=== PATIENT | female | born 1975 | race Hispanic/Latino ===

== ENCOUNTER 2017-09-11 16:44 | Outpatient (CLI) | payer OTHER ==
--- NOTE | 2017-09-11 20:06 | MRI ---
LUMBAR SPINE MRI NONCONTRAST 09/11/17 INDICATION: Lumbar radiculopathy. FINDINGS: There is grade I/II spondylolisthesis at L5-S1 with associated Modic type II degenerative end plate s ignal alteration of the inferior L5 and superior S1 segments. There is no significant height loss of the lumbar spine. Conus medullaris demonstrates termination at the L1 level. Bilateral L5 pars defect s are suggested, although limited by patient motion. Mild nonspecific marrow edema seen at the retail associate ior elements of L4 and is also seen within the left pedicle of the L5 level. L5-S1: Severe bilateral neural foraminal stenosis results in the above described spondylolisthesis du e to pars defects. There is mild narrowing of the central canal. L4-5: Disc osteophyte complex present without high grade central canal or foraminal stenosis. At the L1-2, L2-3 and L3-4 levels, there are mild disc bulges without significant resultant mass effe ct upon the thecal sac or neural foramina. No significant abnormality of the imaged retroperitoneum. Mild marrow edema seen at the posterior elements of L4 and L5. Otherwise no acute marrow edema eviden t. IMPRESSION: Prominent degenerative changes at L5-S1 due to bilateral pars defects with grade I/II spondylolisthes is producing severe bilateral L5-S1 level neural foraminal stenosis with compromise of the bilateral nerve roots. Associated marrow edema is seen involving posterior elements of the L5 segment as well a s the adjacent L4 segment. POS: ABBIE
== END 2017-09-11 16:45 | disposition home or self-care (01) ==
LOC: MRI 16:44
PROVIDERS: ATTEND Family Medicine
DX: M47.27 Other spondylosis with radiculopathy, lumbosacral region (principal); M43.17 Spondylolisthesis, lumbosacral region; M99.53 Intervertebral disc stenosis of neural canal of lumbar region; R60.9 Edema, unspecified
CPT/HCPCS: 72148

== ENCOUNTER 2018-06-17 13:10 | Outpatient (CLI) | payer OTHER | END 2018-06-17 13:11 | disposition home or self-care (01) | LOC: BICMAMMO 13:10 | PROVIDERS: ATTEND Family Medicine | DX: Z12.31 Encounter for screening mammogram for malignant neoplasm of breast (principal) | CPT/HCPCS: 77063; 77067 ==

== ENCOUNTER 2018-12-16 13:46 | Outpatient (CLI) | payer OTHER ==
--- NOTE | 2018-12-16 14:58 | RAD ---
LUMBAR SPINE 3 VIEWS: Date: 12/16/18 HISTORY: Spondylolisthesis of the lumbar region. COMPARISON: 10/28/17. FINDINGS: Bilateral pars defects with prominent approximately 1.7 cm anterior Grade II listhesis of L5 on S1 wi th sclerosis and hypertrophic osteophytosis. No abnormal translation between flexion and extension. S table from prior study. IMPRESSION: Stable Grade II L5-S1 spondylolisthesis. POS: C
== END 2018-12-16 13:47 | disposition home or self-care (01) ==
LOC: RAD 13:46
PROVIDERS: ATTEND Nurse Practitioner Family
DX: M43.17 Spondylolisthesis, lumbosacral region (principal)
CPT/HCPCS: 72100

== ENCOUNTER 2019-04-16 07:51 | Outpatient (CLI) | payer OTHER ==
--- NOTE | 2019-04-16 08:22 | RAD ---
Flexion-extension lateral projections of the lumbar spine INDICATION: History of lumbar spinal listhesis IMPRESSION: Grade 2 spinal listhesis of L5 on S1 digits no definite abnormal translational motion. Mi ld retrolisthesis of L2 on L3 is not accentuated with extension and slightly reduces with flexion. Mild multilevel disc degenerative disease is stable. Bilateral pars defect at L5 are stable.
--- NOTE | 2019-04-16 11:04 | MRI ---
MRI LUMBAR SPINE WITHOUT CONTRAST: Date: 04/16/19 COMPARISON: None. HISTORY: Lumbar spondylolisthesis, back pain radiating into the left hip and buttocks. TECHNIQUE: Multiplanar, multisequence MR imaging of the lumbar spine without contrast. FINDINGS: On the basis of five lumbar-type vertebral bodies, the conus medullaris terminates at the T12-L1 leve l. T12-L1: Intervertebral disc height and signal intensity within normal limits with no significant eleanor tral canal or neural foraminal stenosis. L1-2: Intervertebral disc height and signal intensity within normal limits with no significant centr al canal or neural foraminal stenosis. L2-3: Intervertebral disc height and signal intensity within normal limits with no significant centr al canal or neural foraminal stenosis. L3-4: There is mild disc space narrowing and disc desiccation. There is mild bilateral facet hypertr ophy. There is no significant central canal or neural foraminal stenosis. L4-5: There is mild disc space narrowing and disc desiccation. There is bilateral facet hypertrophy and mild hypertrophy of the ligamentum flavum with fluid within the left facet joint. There is no sig nificant central canal or neural foraminal stenosis. L5-S1: There is disc space narrowing, degenerative end plate change, and disc desiccation. Bilateral L5 pars defects are present with anterolisthesis of L5 on S1 measuring 1.1 cm. There is severe bilateral neural foraminal stenosis and mild central canal stenosis. The imaged retroperitoneal structures demonstrate no acute findings. There is a retroaortic left renal vein. IMPRESSION: Bilateral L5 pars defects with 1.1 cm of L5 on S1 anterolisthesis and associated severe bilateral noris ral foraminal stenosis. POS: OFF
== END 2019-04-16 07:52 | disposition home or self-care (01) ==
LOC: TBSIIMAG 07:51
PROVIDERS: ATTEND Neurological Surgery
DX: M43.16 Spondylolisthesis, lumbar region (principal); M43.17 Spondylolisthesis, lumbosacral region; M51.36 Other intervertebral disc degeneration, lumbar region
CPT/HCPCS: 72100; 72148

== ENCOUNTER 2019-07-28 09:23 | Outpatient (CLI) | payer OTHER ==
[2019-07-28 14:08] LABS: Hemoglobin 14.1 g/dL (12.0-16.0); Mean Corpuscular HGB CONC 33.3 g/dL (32.0-36.0); Mean Corpuscular Hemoglobin 27.8 pg (27.0-31.0); Mean Corpuscular Volume 83.5 fL (78.0-98.0); Mean Platelet Volume 9.9 fL (7.4-10.4); Platelet Count 237 thou/uL (130-400); RBC Distribution Width 12.4 % (11.5-14.5); Red Blood Cell (RBC) Count 5.08 mill/uL (4.20-5.40); White Blood Cell (WBC) Count 12.1 thou/uL (4.8-10.8)
[2019-07-28 14:16] LABS: INR-International Normal Ratio 0.9; Prothrombin Time 11.9 SEC (12.0-14.7)
== END 2019-07-28 09:24 | disposition home or self-care (01) ==
LOC: LABBT 09:23
PROVIDERS: ATTEND Neurological Surgery
DX: Z01.812 Encounter for preprocedural laboratory examination (principal); M48.061 Spinal stenosis, lumbar region without neurogenic claudication; M43.16 Spondylolisthesis, lumbar region
CPT/HCPCS: 36415; 80053; 80061; 82043; 83036; 85027; 85610; 85730

== ENCOUNTER 2019-07-28 13:00 | Inpatient (IN) | payer OTHER ==
[2019-07-30] MEDS ORDERED: EPINEPHrine 1 MG/ML AMP ONE (06:12)
[2019-07-30] MEDS ORDERED: Bupivacaine PF 0.5% 30 ML VIAL ONE (06:12)
[2019-07-30] MEDS ORDERED: Thrombin 5000 UNITS/5 ML VIAL ONE ×2 (06:12→11:22)
[2019-07-30] MEDS ORDERED: HYDROmorphone 0.5 MG/0.5 ML SYRINGE ONE (06:35)
[2019-07-30] MEDS ORDERED: Fentanyl 100 MCG/2 ML VIAL ONE ×7 (06:35→14:55)
[2019-07-30] MEDS ORDERED: SUGAMMADEX SODIUM 200 MG/2 ML VIAL ONE (07:59)
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
[2019-07-30] MEDS ORDERED: Rocuronium Bromide 50 MG/5 ML VIAL ONE (11:45)
[2019-07-30] MEDS ORDERED: Dexamethasone 20 MG/5 ML VIAL ONE (12:32)
[2019-07-30] MEDS ORDERED: Rocuronium Bromide 10 MG/ML (10ML VIAL) ONE (12:32)
[2019-07-30] MEDS ORDERED: Esmolol 100 MG/10 ML VIAL ONE (12:32)
[2019-07-30] MEDS ORDERED: Ondansetron PF 4 MG/2 ML Vial ONE (12:32)
[2019-07-30] MEDS ORDERED: Lidocaine 1% PF 5 ML VIAL ONE (12:32)
[2019-07-30] MEDS ORDERED: Glycopyrrolate 0.2 MG/ML 5 ML SYRINGE ONE (12:32)
[2019-07-30] MEDS ORDERED: PROPOFOL 200 MG/20 ML VIAL ONE (12:32)
[2019-07-30] MEDS ORDERED: Acetaminophen/Codeine 30-300mg Tablet PO PRN (14:00)
[2019-07-30] MEDS ORDERED: tiZANidine HCl 4 MG TAB PO PRN (14:00)
[2019-07-30] MEDS ORDERED: diphenhydrAMINE 25 MG CAP PO PRN (14:00)
[2019-07-30] MEDS ORDERED: Mag-Al 1200 mg/1200 mg/30 ML UDCUP PO PRN (14:00)
[2019-07-30] MEDS ORDERED: Acetaminophen 325 MG TAB PO PRN (14:00)
[2019-07-30] MEDS ORDERED: Promethazine 25 MG TAB PO PRN (14:00)
[2019-07-30] MEDS ORDERED: Ondansetron PF 4 MG/2 ML Vial IVP PRN (14:00)
[2019-07-30] MEDS ORDERED: traMADol HCl 50 MG TAB PO PRN (14:00)
[2019-07-30] MEDS ORDERED: HYDROmorphone 2 MG/ML VIAL ONE (14:56)
[2019-07-30] MEDS ORDERED: Ondansetron HCl/PF 4 MG/2 ML Vial IVP PRN (15:14)
[2019-07-30] MEDS ORDERED: Promethazine HCl 25 MG/ML VIAL SLOW IVP PRN (15:14)
[2019-07-30] MEDS ORDERED: Promethazine HCl 25 MG/ML VIAL IM PRN (15:14)
[2019-07-30] MEDS ORDERED: Ketorolac Tromethamine 30 MG/ML VIAL ONE (16:13)
[2019-07-30] MEDS: Morphine 2 MG/ML SYRINGE SLOW IVP PRN (16:51)
[2019-07-30] MEDS: CEFAZOLIN 2 GM in Premix Bag 1 BAG IVPB SCH ×2 (16:56→23:09)
[2019-07-30] MEDS: Sodium Chloride 0.9% 1,000 ML IV SCH (16:56)
[2019-07-30] MEDS: metFORMIN 500 MG TAB PO SCH (16:56)
[2019-07-30 17:18] VITALS: BMI 34.9
--- NOTE | 2019-07-30 17:27 | OP ---
DATE OF PROCEDURE: 07/30/2019 CHIEF SOLUTION ARCHITECT: Kem Howard PA-C PREOPERATIVE INDICATION: Treat pain and prevent neurological deterioration. PREOPERATIVE DIAGNOSIS: Grade 2/3 spondylolisthesis at L5-S1 with bilateral L5 radiculopathies from foraminal stenosis and an extreme pelvic tilt. POSTOPERATIVE DIAGNOSIS: Grade 2/3 spondylolisthesis at L5-S1 with bilateral L5 radiculopathies from foraminal stenosis and an extreme pelvic tilt. PROCEDURES PERFORMED: Decompressive laminectomy, medial facetectomy, wide foraminotomy to decompress L5 nerve roots bilaterally, laminectomy at L4-L5, transforaminal lumbar interbody arthrodesis L5-S1 and L4-L5, placement of intervertebral biomechanical device L5-S1 and L4-L5, pedicle screw and yasmin instrumentation L4, L5, S1, posterolateral arthrodesis L4, L5, S1, local morselized autograft, and morselized allograft. PREOPERATIVE MEDICATION: Ancef 2 g IV. DRAIN NUMBER: Zero. DRAIN TYPE: None. DESCRIPTION OF PROCEDURE: The patient was brought to the operating room. General endotracheal anesthesia was induced. The patient was positioned on the Yovanny frame with the appropriate padding for the chest and hips. A lateral fluoro radiograph was used to plan our incision. The lumbar skin was sterilely prepped and draped. We opened with a 10 blade knife. We controlled bleeding with bipolar and monopolar cautery. We used monopolar cautery to dissect through subcutaneous tissues to the thoracodorsal fascia. We incised the fascia in the midline and reflected the paraspinal muscles off the spinous process and lamina of L4, L5, and S1. The posterior elements of L5 were floating and not solid at all. These were removed as a single piece. The L4 spinous process was removed with Adson rongeur within the lamina. We performed a laminectomy at L4. We performed medial facetectomy at L4-L5 to decompress the L5 nerve roots in the lateral recess and L5-S1 to treat the S1 nerve roots. Both L5 nerve roots were severely compressed between the pedicles of L5 and the sacrum. We decompressed as much as we could with complete facetectomies and foraminotomies on both sides. Still, the nerves were draped over the top of the sacrum and under the pedicles, they were compressed. We then turned our attention to pedicle screw placement to distract the lumbosacral interspace. Using bony anatomic landmarks, palpation of the medial portion of the pedicles and a lateral fluoro radiograph as our guide, we chose entry points for pedicle screws at L4, L5, and S1 on the left side. We drilled out our entry points and used a bone awl to create trajectories through the pedicles into the vertebral bodies. We probed our trajectories and found them completely encased in bone. We then used a threaded tap to prepare our trajectories and placed 6.5 mm diameter screws through the pedicles into the vertebral bodies. A yasmin was placed into the screw heads and caps tightened over the yasmin. We distracted the lumbosacral interspace and then tightened our caps to generate foraminal space. This helped significantly and decompressed the L5 nerve roots. We then used our trajectory under the L5 nerve root into the intervertebral space to remove disk contents using curettes and rongeurs at the lumbosacral interspace. We used a bone rasp to measure the height of the interspace to 7 mm. We placed a 7 mm PEEK graft into the interspace under radiographic guidance. This was done after we loaded it with demineralized bone matrix and morselized autograft from our laminectomy bone. The laminectomy bone was morselized and cleaned of soft tissue attachments on the back table and added to demineralized bone matrix and that fusion substrate was placed in the center of the PEEK graft before it was positioned appropriately. Due to the extreme pelvic tilt in the fact that the lumbosacral interspace was directed vertically, we continued our instrumentation up to L4. After complete facetectomy on the left side at L4-L5, we could access the intervertebral space easily. We removed disk contents using curettes and rongeurs. We used a bone rasp to measure the height of the interspace to 11 mm. An 11 mm PEEK graft was brought into the field. We loaded with demineralized bone matrix and morselized autograft and placed it in the interspace under radiographic guidance to the appropriate depth. We then turned our attention to the right-sided pedicle screw placement. Using bony anatomic landmarks, palpation of the medial portion of the pedicles and a lateral fluoro radiograph as our guide, we chose entry points for pedicle screws at L4, L5, S1. We drilled out our entry points and used a bone awl to direct through the pedicles into the vertebral bodies. We tapped each of our trajectories and probed them. We found them completely encased in bone. We placed 6.5 mm diameter screws at L4, L5, and S1. A 360-degree image set was generated with our isocentric C-arm. This showed that our L5 pedicle screw on the right side was a bit short and would not to be able to capture yasmin along with the L4 and S1 pedicle screws at that side. We elected to remove our 6.[address] and place a longer 7.5 mm diameter screw and we left a few threads out of the bone. This lined up much better to capture yasmin. We irrigated copiously with bacitracin irrigation. We ensured that the L4, L5, and S1 nerve roots were well decompressed. Due to the grade 2/3 spondylolisthesis, L5 nerve roots were prominently visible and in fact there were even with the base of the pedicle screw heads at L5, but under the pedicles themselves. The interbody device and our distraction gave these roots enough space and a Haney ball probe could be passed out of the foramen without impingement. We placed rods and screw heads on the right side and using a torque/counter-torque mechanism, we ensured adequate tightness of the caps over the yasmin. We loosened the caps on the left side and re-tightened them. We used gentle compression across both interspaces to keep our interbody grafts in place. Once again, we probed into the foramina around the L4, L5, and S1 nerve roots and they were still well decompressed. We irrigated with bacitracin irrigation. We decorticated the transverse processes of L4, L5 and the sacral ala bilaterally. Over the decorticated bone, we left demineralized bone matrix and morselized autograft as our posterior lateral fusion substrate. We treated the wound with vancomycin powder and we closed the wound in anatomical layers. We applied a sterile dressing. This was a clean case, no contamination. Job ID: [id number]
[2019-07-30] MEDS: Morphine 4 MG/ML VIAL SLOW IVP PRN (20:00)
[2019-07-30] MEDS ORDERED: Docusate 100 MG CAP PO SCH (21:30)
[2019-07-31] MEDS: Morphine 4 MG/ML VIAL SLOW IVP PRN ×2 (01:55→05:11)
[2019-07-31] MEDS: Morphine 2 MG/ML SYRINGE SLOW IVP PRN ×3 (04:12→22:07)
[2019-07-31] MEDS: Sodium Chloride 0.9% 1,000 ML IV SCH ×2 (05:15→17:26)
[2019-07-31] MEDS: Docusate 100 MG CAP PO SCH ×2 (08:33→22:10)
[2019-07-31] MEDS: metFORMIN 500 MG TAB PO SCH ×2 (08:34→16:35)
[2019-07-31] MEDS: Lisinopril 5 MG TAB PO SCH (08:42)
[2019-07-31] MEDS: Hydrochlorothiazide 25 MG TAB PO SCH (08:42)
[2019-07-31] MEDS: HYDROcodone/Acetaminophen 7.5/325 mg Tablet PO PRN ×2 (09:44→16:35)
[2019-07-31] MEDS ORDERED: Ketorolac Tromethamine 30 MG/ML VIAL IVP SCH (13:30)
[2019-07-31] MEDS ORDERED: Sodium Chloride 0.9% 1,000 ML IV SCH (13:30)
[2019-07-31] MEDS: Ketorolac Tromethamine 30 MG/ML VIAL IVP SCH (22:10)
[2019-08-01] MEDS: Morphine 4 MG/ML VIAL SLOW IVP PRN (02:00)
[2019-08-01] MEDS: Morphine 2 MG/ML SYRINGE SLOW IVP PRN ×2 (04:50→07:50)
[2019-08-01] MEDS: HYDROcodone/Acetaminophen 7.5/325 mg Tablet PO PRN ×5 (04:51→23:27)
[2019-08-01] MEDS: Sodium Chloride 0.9% 1,000 ML IV SCH ×2 (04:54→16:44)
[2019-08-01] MEDS: Docusate 100 MG CAP PO SCH ×2 (09:18→20:05)
[2019-08-01] MEDS: metFORMIN 500 MG TAB PO SCH ×2 (09:19→16:44)
[2019-08-01] MEDS: Ketorolac Tromethamine 30 MG/ML VIAL IVP SCH ×2 (09:19→20:06)
[2019-08-01] MEDS: Hydrochlorothiazide 25 MG TAB PO SCH (09:27)
[2019-08-01] MEDS: Lisinopril 5 MG TAB PO SCH (09:28)
--- NOTE | 2019-08-01 14:50 | PRG ---
DATE OF SERVICE: 08/01/2019 Ms. Bobby is now 2 days status post two-level TLIF. As would be expected, she has been continuing with significant degree of postoperative incisional and low back pain. We will make some minor modifications to her pain medicines. We will continue to encourage ambulation with physical therapy. I am hopeful that over the next 24 hours, she will reach a point where she is ready to discharge home. Job ID: [id number]
--- NOTE | 2019-08-01 20:09 | PRG ---
DATE OF SERVICE: 08/01/2019 Ms. Bobby is now postop day 2 following two-level TLIF with Dr. Hartman. Her pain is somewhat more under control today as compared to yesterday, although still considerable as to be expected given the type of procedure that she underwent. The clamshell brace she brought is cumbersome and difficult for her to use, particularly in the state of pain that she is in. I think it is reasonable that we can switch her to an LSO brace instead. I would like to see her ambulating more, and she understands this. I discussed this with nursing staff and PT. We will plan to continue to follow. Job ID: [id number]
[2019-08-02] MEDS: HYDROcodone/Acetaminophen 7.5/325 mg Tablet PO PRN ×4 (03:28→15:14)
--- NOTE | 2019-08-02 06:51 | PRG ---
DATE OF SERVICE: 08/02/2019 SUBJECTIVE: I saw Ms. Bobby in her hospital room just this morning. She is resting comfortably as I came in the room, but we woke her up and talked for a bit. She complained of pain over the weekend, but it is slowly getting better. There is numbness in the anterior thigh, it is from positioning on the operating table and even that is getting better. She has no radiating radicular pain down her legs like she had before surgery. All of her pain is at the incisional site. OBJECTIVE: Overnight, the vitals have been stable and I do not see any fevers recorded. Her neurological function is good. PLAN: Once pain is under reasonable control, Ms. Bobby can be discharged home. We went over brace utilization, activity restriction, wound care and followup arrangements. She expressed her understanding. If she is ready for discharge at lunch, she will let the nurses know and our PA, and ensure that she has home going medications by calling them into her pharmacy. Job ID: [id number]
[2019-08-02] MEDS: Hydrochlorothiazide 25 MG TAB PO SCH (09:18)
[2019-08-02] MEDS: metFORMIN 500 MG TAB PO SCH (09:18)
[2019-08-02] MEDS: Docusate 100 MG CAP PO SCH (09:19)
[2019-08-02] MEDS: Lisinopril 5 MG TAB PO SCH (09:20)
[2019-08-02] MEDS: Ketorolac Tromethamine 30 MG/ML VIAL IVP SCH (09:20)
[2019-08-02] MEDS: Sodium Chloride 0.9% 1,000 ML IV SCH (10:03)
[2019-08-02] MEDS ORDERED: Bisacodyl 10 MG SUPP PR PRN (12:37)
[2019-08-02 16:08] VITALS: BP 134/81; TEMP 98.6
== END 2019-08-02 16:00 | disposition home or self-care (01) | DRG 455 ==
LOC: SURG A 07-30 06:08
PROVIDERS: ADMIT Neurological Surgery; ATTEND Neurological Surgery
PROC: 0SG00AJ Fusion of Lumbar Vertebral Joint with Interbody Fusion Device, Posterior Approach, Anterior Column, Open Approach (ICD-10-PCS; principal; 2019-07-30)
PROC: 0SG0071 Fusion of Lumbar Vertebral Joint with Autologous Tissue Substitute, Posterior Approach, Posterior Column, Open Approach (ICD-10-PCS; 2019-07-30)
PROC: 0SG30AJ Fusion of Lumbosacral Joint with Interbody Fusion Device, Posterior Approach, Anterior Column, Open Approach (ICD-10-PCS; 2019-07-30)
PROC: 0SG3071 Fusion of Lumbosacral Joint with Autologous Tissue Substitute, Posterior Approach, Posterior Column, Open Approach (ICD-10-PCS; 2019-07-30)
PROC: 01NB0ZZ Release Lumbar Nerve, Open Approach (ICD-10-PCS; 2019-07-30)
PROC: 01NR0ZZ Release Sacral Nerve, Open Approach (ICD-10-PCS; 2019-07-30)
PROC: 4A11X4G Monitoring of Peripheral Nervous Electrical Activity, Intraoperative, External Approach (ICD-10-PCS; 2019-07-30)
DX: M48.061 Spinal stenosis, lumbar region without neurogenic claudication (principal); M43.16 Spondylolisthesis, lumbar region; I10 Essential (primary) hypertension; E11.9 Type 2 diabetes mellitus without complications; F32.9 Major depressive disorder, single episode, unspecified; F41.1 Generalized anxiety disorder; G89.29 Other chronic pain; E66.9 Obesity, unspecified; M54.16 Radiculopathy, lumbar region; M43.17 Spondylolisthesis, lumbosacral region; Z90.49 Acquired absence of other specified parts of digestive tract; Z87.81 Personal history of (healed) traumatic fracture; Z68.34 Body mass index [BMI] 34.0-34.9, adult
CPT/HCPCS: 36415; 76000; 80053; 80061; 82043; 83036; 85027; 85610; 85730; C1713; C1768; J0171; J0690; J1100; J1170; J1885; J2001; J2270; J2405; J2704; J3010; J3370; J3490; S0020

== ENCOUNTER 2019-09-13 15:31 | Outpatient (CLI) | payer OTHER ==
--- NOTE | 2019-09-13 16:40 | RAD ---
LUMBAR SPINE RADIOGRAPHS THREE VIEWS: Date: 09-13-2019 Provided Clinical History: Sciatica. Comparison: 04-16-19 FINDINGS: Interval post-operative changes with bilateral pedicle screw and vertical interconnecting yasmin placeme nt spanning L4 through S2 with intervening intervertebral disc devices. No evidence for hardware loos ening or migration. Lumbar alignment is unchanged. There is no evidence for abnormal translational mo tion with flexion and extension. Vertebral body heights appear preserved. IMPRESSION: As above. POS: DEONTE
== END 2019-09-13 15:32 | disposition home or self-care (01) ==
LOC: BICRAD 15:31
PROVIDERS: ATTEND Neurological Surgery
DX: M43.16 Spondylolisthesis, lumbar region (principal); M54.30 Sciatica, unspecified side; M54.5 Low back pain; Z98.890 Other specified postprocedural states
CPT/HCPCS: 72100

== ENCOUNTER 2020-01-03 13:09 | Outpatient (CLI) | payer OTHER ==
--- NOTE | 2020-01-03 13:52 | RAD ---
LUMBAR SPINE 4 VIEWS: HISTORY: Spondylolisthesis, low back pain. COMPARISON: 09/13/2019. FINDINGS: Postop changes at L4, L5, and S1 with pedicle screw placement and stabilization and intradiskal prost hesis with stable anterolisthesis of L5 on S1 without evidence for abnormal translation between flexi on or extension. IMPRESSION: Stable postoperative changes of the lower lumbar spine. No abnormal translation between flexion and extension. POS: OFF
== END 2020-01-03 13:10 | disposition home or self-care (01) ==
LOC: TBSIIMAG 13:09
PROVIDERS: ATTEND Neurological Surgery
DX: M43.17 Spondylolisthesis, lumbosacral region (principal); Z98.890 Other specified postprocedural states
CPT/HCPCS: 72110

== ENCOUNTER 2020-07-12 07:17 | Outpatient (CLI) | payer OTHER ==
[2020-07-11 15:27] VITALS: BMI 38.4
[2020-07-12 11:15] VITALS: BP 122/88; TEMP 96.6
== END 2020-07-12 09:53 | disposition home or self-care (01) ==
LOC: RAD 07:17
PROVIDERS: ATTEND Specialist
DX: M51.17 Intervertebral disc disorders with radiculopathy, lumbosacral region (principal); M43.17 Spondylolisthesis, lumbosacral region; M48.061 Spinal stenosis, lumbar region without neurogenic claudication; K76.0 Fatty (change of) liver, not elsewhere classified; Z98.1 Arthrodesis status
CPT/HCPCS: 62304; 72132

== ENCOUNTER 2020-09-15 13:47 | Outpatient (CLI) | payer OTHER | END 2020-09-15 13:48 | disposition home or self-care (01) | LOC: TBSIIMAG 13:47 | PROVIDERS: ATTEND Neurological Surgery | DX: M48.061 Spinal stenosis, lumbar region without neurogenic claudication (principal); Z98.890 Other specified postprocedural states | CPT/HCPCS: 72100 ==

== ENCOUNTER 2022-01-25 12:36 | Outpatient (CLI) | payer BC | END 2022-01-25 12:37 | disposition home or self-care (01) | LOC: SCSMRI 12:36 | PROVIDERS: ATTEND Specialist | DX: M43.17 Spondylolisthesis, lumbosacral region (principal); M47.816 Spondylosis without myelopathy or radiculopathy, lumbar region; Z98.890 Other specified postprocedural states; M25.78 Osteophyte, vertebrae; M48.061 Spinal stenosis, lumbar region without neurogenic claudication; M48.07 Spinal stenosis, lumbosacral region | CPT/HCPCS: 72148 ==

== ENCOUNTER 2023-03-13 12:45 | Outpatient (CLI) | payer BC | END 2023-03-13 12:46 | disposition home or self-care (01) | LOC: MRI 12:45 | PROVIDERS: ATTEND Neurological Surgery | DX: M54.50 Low back pain, unspecified (principal); M47.816 Spondylosis without myelopathy or radiculopathy, lumbar region; M51.36 Other intervertebral disc degeneration, lumbar region; M89.38 Hypertrophy of bone, other site; Z98.890 Other specified postprocedural states | CPT/HCPCS: 72148 ==

== ENCOUNTER 2023-12-06 23:43 | Emergency (ER) | payer BC ==
[2023-12-07] MEDS ORDERED: Ketorolac Tromethamine 30 MG (1 mL) VIAL ONE (00:17)
[2023-12-07] MEDS ORDERED: predniSONE 20 MG TAB ONE (00:21)
== END 2023-12-07 01:04 | disposition home or self-care (01) ==
LOC: ERS 23:43
DX: M54.50 Low back pain, unspecified (principal); I10 Essential (primary) hypertension; E11.9 Type 2 diabetes mellitus without complications
CPT/HCPCS: 96372; 99283; J1885; J7512